=== PATIENT | male | born 1970 | race Caucasian/White ===

== ENCOUNTER 2021-04-25 07:29 | Emergency (ER) | payer OTHER ==
[~2021-04-25] VITALS: Ht 182.9 cm; Wt 90.7 kg
--- NOTE | 2021-04-25 07:45 | NUR ---
Pt triaged and walked ambulatory to rm 4 for evaluation. Report given to Alysia LEMUS to assume care of patient.
[2021-04-25 07:46] VITALS: BP_SYST 154
--- NOTE | 2021-04-25 07:46 | NUR ---
Dr Laboy evaluating patient at bedside
--- NOTE | 2021-04-25 07:52 | NUR ---
PATIENT TO ED FOR RIGHT THUMB PAIN. PATIENT STATES LAST WEEK HE BUMPED HIS THUMB AGAINST A HEAVY OBJECT AND THE PAIN HAS BEEN PROGRESSING. PATIENT'S RIGHT THUMB CUTICLE AND SWOLLEN, RED AND PAINFUL. NO EXUDATE PRESENT. MD AT BEDSIDE TO SEE PATIENT.
--- NOTE | 2021-04-25 07:58 | NUR ---
RADIOLOGY AT BEDSIDE
[2021-04-25] MEDS ORDERED: HYDR-3917 PO (08:43)
[2021-04-25] MEDS ORDERED: IBUP-1971 PO (08:43)
--- NOTE | 2021-04-25 09:02 | NUR ---
Patient given written and verbal discharge instructions and verbalizes understanding. ER MD discussed with patient the results and treatment provided. Patient in stable condition. ID arm band removed. NO iv this visit. Rx of ibuprofen and Valentines given. Patient educated on pain management and to follow up with PMD. Pain Scale . Opportunity for questions provided and answered. Medication side effect fact sheet provided.
[2021-04-25 09:04] VITALS: BP_SYST 113
== END 2021-04-25 09:02 | disposition home or self-care (01) ==
LOC: SED 07:29
DX: S62.501A Fracture of unspecified phalanx of right thumb, initial encounter for closed fracture (principal); W22.8XXA Striking against or struck by other objects, initial encounter; Y93.89 Activity, other specified; Y92.89 Other specified places as the place of occurrence of the external cause; Y99.8 Other external cause status
CPT/HCPCS: 73140-TC; 99283

== ENCOUNTER 2021-04-25 19:23 | Emergency (ER) | payer OTHER ==
[~2021-04-25] VITALS: Ht 182.9 cm; Wt 90.7 kg
[~2021-04-25 19:23] MED LIST: HYDR-3917 PO; IBUP-1971 PO
[2021-04-25 19:30] VITALS: BP_SYST 148
--- NOTE | 2021-04-25 19:30 | NUR ---
Patient triaged and placed in waiting room. VSS and patient appears in no acute distress at this time. Accompanied by FAM MEMBER, awaiting available bed, and MD notified of need for MSE.
--- NOTE | 2021-04-25 22:11 | NUR ---
Patient to ER bed [facility] to gown for evaluation. Side rails up. Report given to Brice LEMUS.
--- NOTE | 2021-04-25 22:50 | NUR ---
DR. LEONARD AT BEDSIDE FOR MSE
--- NOTE | 2021-04-25 23:30 | NUR ---
DR. LEONARD AT BEDSIDE FOR PROCEDURE
[2021-04-26] MEDS ORDERED: SULFAMETHOXAZOLE/TRIMETHOPR DS 1 TABLET PO ONE
--- NOTE | 2021-04-26 00:30 | NUR ---
Patient given written and verbal discharge instructions and verbalizes understanding. ER MD discussed with patient the results and treatment provided. Patient in stable condition. ID arm band removed. Rx of Bactrim DS given. Patient educated on pain management and to follow up with PMD. Pain Scale 2/10. Opportunity for questions provided and answered. Medication side effect fact sheet provided.
[2021-04-26 00:31] VITALS: BP_SYST 139
== END 2021-04-26 00:31 | disposition home or self-care (01) ==
LOC: SED 19:23
DX: S60.011A Contusion of right thumb without damage to nail, initial encounter (principal); L03.011 Cellulitis of right finger; Z79.899 Other long term (current) drug therapy; W22.8XXA Striking against or struck by other objects, initial encounter; Y93.89 Activity, other specified; Y92.89 Other specified places as the place of occurrence of the external cause; Y99.8 Other external cause status
CPT/HCPCS: 99284